=== PATIENT | male | born 1980 | race Two or more races ===

== ENCOUNTER 2016-09-20 12:40 | Emergency (ER) | payer SELFPAY ==
[2016-09-20 12:45] VITALS: BP 142/96; BMI 29.5
--- NOTE | 2016-09-20 12:59 | DR.GENAD ---
HPI - PCP Primary Care Physician: NFD - Complaint/Symptoms Chief Complaint Doctors Comments: Patient has no history of asthma. Denies cigarettes; denies known allergies. 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 Chief Complaint:: SHORT OF BREATH, NUMBNESS TO FACE, CHEST, AND ARMS X 30 MINUTES - Source History Provided: Patient - Mode of Arrival Mode of Arrival: Ambulatory - Timing Onset of Chief Complaint: 09/20/16 PMH - PMH Past Medical History: No Past Surgical History: Yes Surgical History: Tonsillectomy - Family History History of Family Medical Conditions: No - Social History Does patient currently use any type of tobacco product: No Have you used tobacco products in the last 12 months: No Type of Tobacco Use: None Does any household member use tobacco: No Alcohol Use: Occasionally Do you use any recreational Drugs:: No Lives With: Family Lives Where: Home - infectious screening In the last 2 months have you had wt loss of >10#?: NO Have you had fever, night sweats or hemotysis?: No Have you traveled outside the country in the last 6 months?: No Isolation: Standard ROS - Review of Systems Constitutional: No Symptoms Reported Eyes: No Symptoms Reported ENTM: No Symptoms Reported Respiratoy: Short of Breath Cardiovascular: No Symptoms Reported Gastrointestinal/Abdominal: No Symptoms Reported Genitourinary: No Symptoms Reported Neurological: No Symptoms Reported Musculoskeletal: No Symptoms Reported Integumentary: No Symptoms Reported Hematologic/Lymphatic: No Symptoms Reported Endocrine: No Symptoms Reported Psychiatric: No Symptoms Reported All Other Systems: Reviewed and Negative PE - Vital Signs Vitals: Temperature 98.3 F Pulse Rate 114 Respiratory Rate 20 Blood Pressure 142/96 O2 Sat by Pulse Oximetry 100 - General Limitations: No Limitations General Appearance: Alert, In No Apparent Distress - Head Head Exam: Normal Inspection, Atraumatic - Eyes Eye exam: Normal Appearance, PERRL, EOMI - ENT ENT Exam: Normal Exam External Ear Exam: Normal External Inspection TM/Canal Exam: Bilateral Normal Nose Exam: Normal Nose Exam Mouth Exam: Normal Inspection Throat Exam: Normal Inspection - Neck Neck Exam: Normal Inspection - Chest Chest Inspection: Normal Inspection - Respiratory Respiratory Exam: Normal Lung Sounds Bilat Respiratory Exam: Bilateral Clear to Auscultation - Cardiovascular Cardiovascular Exam: Regular Rate, Normal Rhythm - Back Back Exam: Normal Inspection - Neurologic Neurological Exam: Alert, Oriented X3, CN II-XII Intact - Psychiatric Psychiatric Exam: Normal Affect - Skin Skin Exam: Warm, Dry, Intact ROR - Labs Reviewed Result Diagrams: 09/20/16 13:09 09/20/16 13:09 Laboratory: WBC 7.3 X10^3/uL (3.6-10.0) 09/20/16 13:09 RBC 5.67 X10^6/uL (4.7-6.0) 09/20/16 13:09 Hgb 15.6 g/dL (13.5-18.0) 09/20/16 13:09 Hct 45.2 % (42.0-54.0) 09/20/16 13:09 MCV 79.7 fL (80.0-100.0) L 09/20/16 13:09 MCH 27.5 pg (27.0-34.0) 09/20/16 13:09 MCHC 34.5 g/dL (33.0-35.0) 09/20/16 13:09 RDW 13.6 % (11.6-16.5) 09/20/16 13:09 Plt Count 219 X10^3/uL (150.0-450.0) 09/20/16 13:09 MPV 8.3 fL (7.4-11.0) 09/20/16 13:09 Neut % 46.4 % (42.0-75.0) 09/20/16 13:09 Lymph % 38.5 % (21.0-51.0) 09/20/16 13:09 [place] % 5.1 % (0.0-13.0) 09/20/16 13:09 Eos % 9.5 % (0.9-2.9) H 09/20/16 13:09 Baso % 0.5 % (0.2-1.0) 09/20/16 13:09 Neut # 3.4 x10^3/uL (2.2-4.8) 09/20/16 13:09 Lymph # 2.8 X10^3/uL (1.3-2.9) 09/20/16 13:09 [place] # 0.4 x10^3/uL (0.3-0.8) 09/20/16 13:09 Eos # 0.7 x10^3/uL (0.0-0.2) H 09/20/16 13:09 Baso # 0.0 X10^3/uL (0.0-0.1) 09/20/16 13:09 Absolute Nucleated RBC 0.0 /100WBC 09/20/16 13:09 Sodium 140 mmol/L (136-145) 09/20/16 13:09 Corrected Sodium 141 mmol/L (136-145) 09/20/16 13:09 Potassium 3.4 mmol/L (3.5-5.1) L 09/20/16 13:09 Chloride 106 mmol/L (98-107) 09/20/16 13:09 Carbon Dioxide 24.3 mmol/L (21-32) 09/20/16 13:09 BUN 17 mg/dL (7-18) 09/20/16 13:09 Creatinine 1.16 mg/dL (0.70-1.30) 09/20/16 13:09 Est GFR (MDRD) Af Amer > 60 (>60) 09/20/16 13:09 Est GFR (MDRD) Non-Af > 60 (>60) 09/20/16 13:09 Glucose 157 mg/dL (65-99) H 09/20/16 13:09 Calcium 8.7 mg/dL (8.5-10.1) 09/20/16 13:09 Corrected Calcium TNP 09/20/16 13:09 Total Bilirubin 0.50 mg/dL (0.2-1.0) 09/20/16 13:09 AST 31 Units/L (15-37) 09/20/16 13:09 ALT 46 Units/L (12-78) 09/20/16 13:09 Alkaline Phosphatase 68 Units/L (46-116) 09/20/16 13:09 Total Protein 7.5 g/dL (6.4-8.2) 09/20/16 13:09 Albumin 3.9 g/dL (3.4-5.0) 09/20/16 13:09 Globulin 3.6 g/dL (2.5-4.5) 09/20/16 13:09 Albumin/Globulin Ratio 1.1 Ratio (1.1-2.1) 09/20/16 13:09 - XRAY XRAY Interpreted by: Radiologist (No acute pulmonary disease) - Diagnosis Discharge Problem: Allergic reaction Qualifiers: Encounter type: initial encounter Qualified Code(s): T78.40XA - Allergy, unspecified, initial encounter - Discharge Plan Condition: Stable - Follow ups/Referrals Follow ups/Referrals: NFD,None [Primary Care Provider] - 3 days - Instructions
--- NOTE | 2016-09-20 13:16 | RAD ---
Examination: Chest x-ray. Clinical History: Shortness of breath, numbness down both arms, trouble breathing. Technique: PA and lateral views of the chest were obtained. Comparison: None available. Findings: The cardiac and mediastinal contours are within normal limits. No pneumothorax or pleural effusion is noted. The lungs appear clear. No acute osseous abnormality is noted. Impression: 1. No acute disease. Reported By:
[2016-09-20 13:18] LABS: BASOPHILS % (AUTO) 0.5 % (0.2-1.0); EOSINOPHILS # (AUTO) 0.7 x10^3/uL (0.0-0.2); EOSINOPHILS % (AUTO) 9.5 % (0.9-2.9); HEMATOCRIT 45.2 % (42.0-54.0); HEMOGLOBIN 15.6 g/dL (13.5-18.0); LYMPHOCYTES # (AUTO) 2.8 X10^3/uL (1.3-2.9); LYMPHOCYTES % (AUTO) 38.5 % (21.0-51.0); MEAN CORPUSCULAR HEMOGLOBIN 27.5 pg (27.0-34.0); MEAN CORPUSCULAR HGB CONC 34.5 g/dL (33.0-35.0); MEAN CORPUSCULAR VOLUME 79.7 fL (80.0-100.0); MEAN PLATELET VOLUME 8.3 fL (7.4-11.0); MONOCYTES # (AUTO) 0.4 x10^3/uL (0.3-0.8); MONOCYTES % (AUTO) 5.1 % (0.0-13.0); NEUTROPHILS # (AUTO) 3.4 x10^3/uL (2.2-4.8); NEUTROPHILS % (AUTO) 46.4 % (42.0-75.0); PLATELET COUNT 219 X10^3/uL (150.0-450.0); RED BLOOD COUNT 5.67 X10^6/uL (4.7-6.0); RED CELL DISTRIBUTION WIDTH 13.6 % (11.6-16.5); WHITE BLOOD COUNT 7.3 X10^3/uL (3.6-10.0)
[2016-09-20 13:28] LABS: ALANINE AMINOTRANSFERASE 46 Units/L (12-78); ALBUMIN 3.9 g/dL (3.4-5.0); ALKALINE PHOSPHATASE 68 Units/L (46-116); ASPARTATE AMINO TRANSFERASE 31 Units/L (15-37); BLOOD UREA NITROGEN 17 mg/dL (7-18); CALCIUM 8.7 mg/dL (8.5-10.1); CARBON DIOXIDE 24.3 mmol/L (21-32); CHLORIDE 106 mmol/L (98-107); COR NA(FOR HYPERGLY) 141 mmol/L (136-145); CREATININE 1.16 mg/dL (0.70-1.30); GLUCOSE 157 mg/dL (65-99); SODIUM 140 mmol/L (136-145); TOTAL PROTEIN 7.5 g/dL (6.4-8.2); eGFR BLACK RACES > 60 (>60); eGFR NON BLACK RACES > 60 (>60)
[2016-09-20] MEDS ORDERED: DECADRON INJ IM ONE (13:46)
[2016-09-20] MEDS ORDERED: DECADRON INJ ONE (13:49)
== END 2016-09-20 14:04 | disposition home or self-care (01) ==
LOC: ER 12:40
DX: T78.40XA Allergy, unspecified, initial encounter (principal)
CPT/HCPCS: 36415; 71020; 80053; 85025; 96372; 99282; 99283; J1100